=== PATIENT | female | born 2000 | race Caucasian/White ===

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

== ENCOUNTER 2020-06-18 23:36 | Emergency (ER) | payer SELFPAY ==
[~2020-06-18] VITALS: Ht 160 cm; Wt 52.1 kg
[~2020-06-18 23:36] MED LIST changes: -FLUO10CA19; +FLUO10CA31; -MAGN400T6 PO; +MAGN400T8 PO; +SMTR50T PO
[2020-06-19] MEDS ORDERED: LACTATED RINGERS 1,000 ML IV ONE (00:30)
[2020-06-19 00:33] LABS: BILIRUBIN,URINE NEGATIVE (NEGATIVE); CLARITY,URINE CLEAR; COLOR,URINE YELLOW; GLUCOSE, URINE (UA) NEGATIVE (NEGATIVE); KETONES,URINE NEGATIVE (NEGATIVE); LEUKOCYTE ESTERASE ,URINE NEGATIVE (NEGATIVE); NITRITE,URINE NEGATIVE (NEGATIVE); PROTEIN,URINE NEGATIVE (NEGATIVE)
[2020-06-19 00:36] LABS: BASOPHILS # (AUTO) 0.1 10^3/uL (0.0-0.1); BASOPHILS % (AUTO) 1 % (0-10); EOSINOPHILS # (AUTO) 0.3 10^3/uL (0.0-0.3); EOSINOPHILS % (AUTO) 2 % (0-10); HEMATOCRIT 45 % (35-52); LYMPHOCYTES # (AUTO) 1.9 10^3/uL (1.0-4.0); LYMPHOCYTES % (AUTO) 16 % (12-44); MEAN CORPUSCULAR HEMOGLOBIN 31 pg (25-34); MEAN CORPUSCULAR HGB CONC 34 g/dL (32-36); MEAN CORPUSCULAR VOLUME 92 fL (80-99); MEAN PLATELET VOLUME 10.9 fL (9.0-12.2); MONOCYTES % (AUTO) 9 % (0-12); NEUTROPHILS # (AUTO) 8.6 10^3/uL (1.8-7.8); NEUTROPHILS % (AUTO) 72 % (42-75); PLATELET COUNT 244 10^3/uL (130-400); WHITE BLOOD COUNT 11.9 10^3/uL (4.3-11.0)
[2020-06-19 00:39] LABS: BACTERIA,URINE NEGATIVE /HPF
[2020-06-19 00:43] LABS: AMPHETAMINE SCREEN, URINE NEGATIVE (NEGATIVE); BARBITURATE SCREEN URINE NEGATIVE (NEGATIVE); BENZODIAZEPINES SCREEN URINE NEGATIVE (NEGATIVE); CANNABINOID SCREEN, URINE NEGATIVE (NEGATIVE); COCAINE SCREEN URINE NEGATIVE (NEGATIVE); METHADONE STAT NEGATIVE (NEGATIVE); METHAMPHETAMINE SCREEN URINE S NEGATIVE (NEGATIVE); OPIATE SCREEN URINE NEGATIVE (NEGATIVE); OXYCODONE STAT NEGATIVE (NEGATIVE); PROPOXYPHENE STAT NEGATIVE (NEGATIVE); TRICYCLIC ANTIDEPRESSANTS SCRE NEGATIVE (NEGATIVE)
[2020-06-19 00:47] LABS: CHLORIDE 106 MMOL/L (98-107); POTASSIUM 3.4 MMOL/L (3.6-5.0); SODIUM 145 MMOL/L (135-145)
[2020-06-19 00:48] LABS: ALBUMIN 4.7 GM/DL (3.2-4.5)
[2020-06-19 00:50] LABS: GLUCOSE 90 MG/DL (70-105); TOTAL PROTEIN 7.9 GM/DL (6.4-8.2)
[2020-06-19 00:51] LABS: CARBON DIOXIDE 27 MMOL/L (21-32)
[2020-06-19 00:52] LABS: BILIRUBIN,TOTAL 0.3 MG/DL (0.1-1.0)
[2020-06-19 00:54] LABS: ALKALINE PHOSPHATASE 72 U/L (40-136); CREATININE SERUM 0.72 MG/DL (0.60-1.30); GFR ESTIMATED > 60
[2020-06-19 00:55] LABS: BUN/CREATININE RATIO 8
[2020-06-19 00:56] LABS: ACETAMINOPHEN < 10 UG/ML (10-30); SALICYLATE < 5.0 MG/DL (5.0-20.0)
[2020-06-19 00:57] LABS: ALANINE AMINOTRANSFERASE 22 U/L (0-55)
--- NOTE | 2020-06-19 01:04 | ED General ---
General Chief Complaint: Substance Abuse Stated Complaint: UNK-POSSIBLE DRUG INTOXICATION Allergies and Home Medications Allergies Coded Allergies: codeine (Verified Allergy, Unknown, 06/21/15) Home Medications Albuterol Sulfate 1 Puff Puff, 2 PUFF IH Q4H PRN for WHEEZING 1 PUFF = 90 MCG Prescribed by: BHARATHI PARNELL on 07/16/172039 Azithromycin 250 Mg Tablet, 250 MG PO UD TAKE 2 TABLETS ON DAY ONE THEN TAKE 1 TABLET DAILY FOR FOUR MORE DAYS Prescribed by: ROMAN SUTTON on 08/16/172339 Cyclobenzaprine HCl 10 Mg Tablet, 10 MG PO Q8H PRN for SPASMS Prescribed by: BHARATHI PARNELL on 07/16/172039 Hydrocodone Bit/Acetaminophen 1 Each Tablet, 1 EACH PO Q4H PRN for PAIN, (Reported) Prednisone 20 Mg Tab, 40 MG PO DAILY Prescribed by: ROMAN SUTTON on 08/16/17 233 Sumatriptan Succinate 50 Mg Tab, 50 MG PO UD one tablet at onset of headache. May take another 2 hours later if needed. Prescribed by: ROMAN SUTTON on 10/03/18 1451 Past Hagrshd-Ikhrui-Ngepqw Hx Patient Social History Type Used: Cigarettes Former Smoker, Quit: Jan 20, 2015 2nd Hand Smoke Exposure: No Recent Hopitalizations: No Immunizations Up To Date Tetanus Booster (TDap): Less than 5yrs PED Vaccines UTD: Yes Seasonal Allergies Seasonal Allergies: No Past Medical History Surgeries: Yes (DENTAL) Respiratory: Yes Asthma Currently Using CPAP: No Currently Using BIPAP: No Cardiac: No Neurological: Yes Headaches /Migraines Reproductive Disorders: No Female Reproductive Disorders: Denies Sexually Transmitted Disease: No HIV/AIDS: No Genitourinary: No Gastrointestinal: No Musculoskeletal: No Endocrine: No HEENT: No Cancer: No Did You Recieve Any Treatments: No Psychosocial: No Integumentary: No Blood Disorders: No Adverse Reaction/Blood Tranf: No Family Medical History Asthma (Patient) FH: throat cancer (Grandfather) Heart murmur (Sister) No Pertinent Family Hx Physical Exam Vital Signs Capillary Refill : Height, Weight, BMI Height: 5'3.00" Weight: 108lbs. 0oz. 48.107678cb; 14.06 BMI Method:Actual Progress/Results/Core Measures Suspected Sepsis SIRS Temperature: Pulse: Respiratory Rate: Laboratory Tests 5/15/21 00:29: White Blood Count 11.9H Blood Pressure / Mean: Laboratory Tests 06/19/20 00:29: Creatinine 0.72, Platelet Count 244, Total Bilirubin 0.3 Results/Orders Lab Results Laboratory Tests Test 06/19/20 00:23 06/19/20 00:29 Range/Units Urine Color YELLOW Urine Clarity CLEAR Urine pH 6.0 5-9 Urine Specific [place] <=1.005 1.016-1.022 Urine Protein NEGATIVE NEGATIVE Urine Glucose (UA) NEGATIVE NEGATIVE Urine Ketones NEGATIVE NEGATIVE Urine Nitrite NEGATIVE NEGATIVE Urine Bilirubin NEGATIVE NEGATIVE Urine Urobilinogen 0.2 < = 1.0 MG/DL Urine Leukocyte Esterase NEGATIVE NEGATIVE Urine RBC (Auto) NEGATIVE NEGATIVE Urine RBC NONE /HPF Urine WBC NONE /HPF Urine Squamous Epithelial Cells 2-5 /HPF Urine Crystals NONE /LPF Urine Bacteria NEGATIVE /HPF Urine Casts NONE /LPF Urine Mucus NEGATIVE /LPF Urine Culture Indicated NO Urine Opiates Screen NEGATIVE NEGATIVE Urine Oxycodone Screen NEGATIVE NEGATIVE Urine Methadone Screen NEGATIVE NEGATIVE Urine Propoxyphene Screen NEGATIVE NEGATIVE Urine Barbiturates Screen NEGATIVE NEGATIVE Ur Tricyclic Antidepressants Screen NEGATIVE NEGATIVE Urine Phencyclidine Screen NEGATIVE NEGATIVE Urine Amphetamines Screen NEGATIVE NEGATIVE Urine Methamphetamines Screen NEGATIVE NEGATIVE Urine Benzodiazepines Screen NEGATIVE NEGATIVE Urine Cocaine Screen NEGATIVE NEGATIVE Urine Cannabinoids Screen NEGATIVE NEGATIVE White Blood Count 11.9 H 4.3-11.0 10^3/uL Red Blood Count 4.87 3.80-5.11 10^6/uL Hemoglobin 15.0 11.5-16.0 g/dL Hematocrit 45 35-52 % Mean Corpuscular Volume 92 80-99 fL Mean Corpuscular Hemoglobin 31 25-34 pg Mean Corpuscular Hemoglobin Concent 34 32-36 g/dL Red Cell Distribution Width 12.8 10.0-14.5 % Platelet Count 244 130-400 10^3/uL Mean Platelet Volume 10.9 9.0-12.2 fL Immature Granulocyte % (Auto) 0 % Neutrophils (%) (Auto) 72 42-75 % Lymphocytes (%) (Auto) 16 12-44 % Monocytes (%) (Auto) 9 0-12 % Eosinophils (%) (Auto) 2 0-10 % Basophils (%) (Auto) 1 0-10 % Neutrophils # (Auto) 8.6 H 1.8-7.8 10^3/uL Lymphocytes # (Auto) 1.9 1.0-4.0 10^3/uL Monocytes # (Auto) 1.0 0.0-1.0 10^3/uL Eosinophils # (Auto) 0.3 0.0-0.3 10^3/uL Basophils # (Auto) 0.1 0.0-0.1 10^3/uL Immature Granulocyte # (Auto) 0.0 0.0-0.1 10^3/uL Sodium Level 145 135-145 MMOL/L Potassium Level 3.4 L 3.6-5.0 MMOL/L Chloride Level 106 98-107 MMOL/L Carbon Dioxide Level 27 21-32 MMOL/L Anion Gap 12 5-14 MMOL/L Blood Urea Nitrogen 6 L 7-18 MG/DL Creatinine 0.72 0.60-1.30 MG/DL Estimat Glomerular Filtration Rate > 60 BUN/Creatinine Ratio 8 Glucose Level 90 70-105 MG/DL Calcium Level 9.0 8.5-10.1 MG/DL Corrected Calcium 8.5-10.1 MG/DL Total Bilirubin 0.3 0.1-1.0 MG/DL Aspartate Amino Transf (AST/SGOT) 24 5-34 U/L Alanine Aminotransferase (ALT/SGPT) 22 0-55 U/L Alkaline Phosphatase 72 40-136 U/L Total Protein 7.9 6.4-8.2 GM/DL Albumin 4.7 H 3.2-4.5 GM/DL Serum Test, Qualitative NEGATIVE NEGATIVE Salicylates Level < 5.0 L 5.0-20.0 MG/DL Acetaminophen Level < 10 L 10-30 UG/ML Serum Alcohol 208 H <10 MG/DL My Orders Orders - RACHELLE LAMBERT DO Ed Iv/Invasive Line Start (06/19/20 00:18) Monitor-Rhythm Ecg Trace Only (06/19/20 00:18) Acetaminophen (06/19/20 00:18) Alcohol (06/19/20:18) Cbc With Automated Diff (06/19/20:18) Comprehensive Metabolic Panel (06/19/20:18) Drug Screen Stat (Urine) (06/19/20 00:18) Hcg,Qualitative Serum (06/19/20:18) Salicylate (06/19/20 00:18) Ua Culture If Indicated (5/15/21 00:18) Ed Iv/Invasive Line Start (06/19/20 00:18) Lactated Ringers (Lr 1000 Ml Iv Solution (06/19/20 00:30) Medications Given in ED Current Medications Medications Dose Ordered Sig/Avery Route Start Time Stop Time Status Last Admin Dose Admin Lactated Ringer's 1,000 ml @ 0 mls/hr Q0M ONCE IV 06/19/20 00:30 06/19/20 00:31 DC 06/19/20 00:42 999 MLS/HR Vital Signs/I&O Capillary Refill : Progress Note : Progress Note GIVEN IV FLUIDS PT QUICKLY WITH IMPROVED MENTATION, SPEECH CLEARER, AND GAIT STEADY AT DISMISSAL Departure Impression Primary Impression: Acute alcoholic intoxication Disposition: 01 HOME, SELF-CARE Condition: Stable Departure-Patient Inst. Decision time for Depature: 01:00 Referrals: [facility] (PCP/Family) Primary Care Physician Patient Instructions: Alcohol Abuse and Alcoholism (DC) Add. Discharge Instructions: NO ALCOHOL!!! HOME, REST LOTS OF CLEAR LIQUIDS--WATER, BROTH, JELLO, GATORADE FOLLOW UP WITH YOUR DR NEEDED All discharge instructions reviewed with patient and/or family. Voiced understanding. RACHELLE LAMBERT DO June 19, 2020 01:03
[2020-06-19 01:34] VITALS: BP 132/78
== END 2020-06-19 01:38 | disposition home or self-care (01) ==
LOC: EDUNIT# 23:36 → ER 23:38
DX: F10.129 Alcohol abuse with intoxication, unspecified (principal); J45.909 Unspecified asthma, uncomplicated; G43.909 Migraine, unspecified, not intractable, without status migrainosus; Z88.5 Allergy status to narcotic agent; Z87.891 Personal history of nicotine dependence; Z79.52 Long term (current) use of systemic steroids; Z79.899 Other long term (current) drug therapy
CPT/HCPCS: 80053; 80306; 81000; 84703 ×2; 85025; 93041; 99284; G0480 ×3; 36415; 80320; 80329

== ENCOUNTER 2021-04-06 19:43 | Emergency (ER) | payer MEDICAID ==
[~2021-04-06] VITALS: Ht 160 cm; Wt 54.0 kg
[~2021-04-06 19:43] MED LIST changes: +CYCL10TA25 PO; -CYCL10TA9 PO; -FLUO10CA31; +FLUO10CA33; -MAGN400T8 PO; +MGX400T PO
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
[2021-04-06 20:01] LABS: BASOPHILS # (AUTO) 0.1 10^3/uL (0.0-0.1); BASOPHILS % (AUTO) 1 % (0-10); EOSINOPHILS # (AUTO) 0.4 10^3/uL (0.0-0.3); EOSINOPHILS % (AUTO) 4 % (0-10); HEMATOCRIT 42 % (35-52); HEMOGLOBIN 14.2 g/dL (11.5-16.0); LYMPHOCYTES # (AUTO) 2.5 10^3/uL (1.0-4.0); LYMPHOCYTES % (AUTO) 24 % (12-44); MEAN CORPUSCULAR HEMOGLOBIN 30 pg (25-34); MEAN CORPUSCULAR HGB CONC 34 g/dL (32-36); MEAN CORPUSCULAR VOLUME 88 fL (80-99); MONOCYTES % (AUTO) 10 % (0-12); NEUTROPHILS # (AUTO) 6.4 10^3/uL (1.8-7.8); NEUTROPHILS % (AUTO) 61 % (42-75); PLATELET COUNT 321 10^3/uL (130-400); WHITE BLOOD COUNT 10.4 10^3/uL (4.3-11.0)
[2021-04-06] MEDS ORDERED: fentaNYL INJ 100 MCG/2 ML AMP IVP STA (20:11)
[2021-04-06] MEDS ORDERED: IOHEXOL 350 MG/ML 100 ML (OMNIPAQUE 350) VIAL IV ONE (20:15)
[2021-04-06] MEDS ORDERED: HOLD METFORMIN - RECEIVED CONTRAST 20 ML VIAL IV SCH (20:15)
[2021-04-06] MEDS ORDERED: NS 100 ML (IVPB) BAG IV ONE (20:15)
[2021-04-06 20:17] LABS: ALBUMIN 4.3 GM/DL (3.2-4.5)
[2021-04-06 20:18] LABS: POTASSIUM 3.6 MMOL/L (3.6-5.0)
[2021-04-06 20:19] LABS: CALCIUM 9.1 MG/DL (8.5-10.1)
[2021-04-06 20:20] LABS: TOTAL PROTEIN 7.1 GM/DL (6.4-8.2)
[2021-04-06 20:22] LABS: BILIRUBIN,TOTAL 0.4 MG/DL (0.1-1.0)
[2021-04-06 20:24] LABS: CREATININE SERUM 1.04 MG/DL (0.60-1.30)
--- NOTE | 2021-04-06 21:01 | Diagnostic Imaging Report ---
PROCEDURE: CT head, face, and cervical spine without contrast. TECHNIQUE: Multiple contiguous axial images were obtained through the head, neck, and facial bones without the use of intravenous contrast. Sagittal and coronal reformations through the cervical spine and facial bones were also performed. Auto Exposure Controls were utilized during the CT exam to meet ALARA standards for radiation dose reduction. INDICATION: Head injury, facial pain. COMPARISON: None available. FINDINGS: Head: No hyperdense hemorrhage or space-occupying mass. No hydrocephalus or midline shift. No evidence of territorial infarct. Basilar cisterns are patent. No focal scalp swelling. No skull fracture. The paranasal sinuses and mastoid air cells are clear. Face: No fracture in the nasal bones, osseous nasal septum, zygomatic arches, maxillary sinus gonzalez or orbits. No globe injury. Temporal mandibular joints are normal alignment. No mandibular fracture is appreciated. Cervical spine: No acute fracture or traumatic malalignment. No high-grade spinal canal narrowing. Airway is patent. No cervical lymphadenopathy. Visualized thyroid is normal. IMPRESSION: 1. No acute intracranial process or skull fracture. 2. No acute fracture or traumatic malalignment of the cervical spine. 3. No fracture of the midface or mandible. Dictated by: Dictated on workstation # [id number]
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
[2021-04-06] MEDS ORDERED: KETOROLAC 30 MG/ML VIAL IVP ONE (21:30)
[2021-04-06] MEDS ORDERED: CYCL10TA25 PO (21:42)
[2021-04-06] MEDS ORDERED: NAPR500T8 PO (21:42)
[2021-04-06 21:55] VITALS: BP 110/80
== END 2021-04-06 21:55 ==
LOC: EDUNIT# 19:43 → ER 19:44
DX: M79.10 Myalgia, unspecified site (principal); Z91.040 Latex allergy status
CPT/HCPCS: 36415; 70450; 70486; 71260; 72125; 74177; 80053; 84703; 85025

== ENCOUNTER 2021-04-28 13:44 | Outpatient (RCR) | payer OTHER ==
[~2021-04-28 13:44] MED LIST changes: +NAPR500T8 PO
== END 2021-05-05 | disposition home or self-care (01) ==
PROVIDERS: ATTEND Nurse Practitioner Family
DX: M54.12 Radiculopathy, cervical region (principal); V89.2XXA Person injured in unspecified motor-vehicle accident, traffic, initial encounter

== ENCOUNTER 2021-06-02 15:25 | Outpatient (RCR) | payer OTHER | END 2021-06-04 | disposition home or self-care (01) | PROVIDERS: ATTEND Nurse Practitioner Family | DX: M54.12 Radiculopathy, cervical region (principal); V89.2XXA Person injured in unspecified motor-vehicle accident, traffic, initial encounter ==

== ENCOUNTER 2021-06-06 14:28 | Outpatient (RCR) | payer OTHER | END 2021-06-24 08:23 | disposition home or self-care (01) | PROVIDERS: ATTEND Nurse Practitioner Family | DX: M50.13 Cervical disc disorder with radiculopathy, cervicothoracic region (principal); M79.12 Myalgia of auxiliary muscles, head and neck; M25.561 Pain in right knee; M25.562 Pain in left knee; M54.50 Low back pain, unspecified; J45.909 Unspecified asthma, uncomplicated; V89.2XXD Person injured in unspecified motor-vehicle accident, traffic, subsequent encounter ==

== ENCOUNTER 2022-06-11 04:59 | Emergency (ER) | payer MEDICAID ==
[~2022-06-11] VITALS: Ht 160 cm; Wt 73.0 kg
[~2022-06-11 04:59] MED LIST changes: +ALBU8.5H6 IH; -RT-ALBUINH IH
[2022-06-11 05:16] VITALS: BP 129/81
[2022-06-11] MEDS ORDERED: RX-ALBUTEROL INHALER 8.5 GM HFA (PROAIR) IH STA (05:51)
[2022-06-11] MEDS ORDERED: RT-ALBUINH INH (05:54)
--- NOTE | 2022-06-11 05:54 | ED Respiratory ---
General Chief Complaint: Respiratory Problems Stated Complaint: ASTHMA ATTACH,COUGH,SOB Nursing Triage Note: Pt presents with c/o asthma attack that has been going on since midnight. She states she ran out of her inhaler yesterday. Pt also states she's approx 12 weeks . Source: patient Exam Limitations: no limitations History of Present Illness Date Seen by Provider: June 11, 2022 Time Seen by Provider: 05:45 Initial Comments Here with report of several episodes of wheezing since midnight. States that she is 11+ weeks . She has had asthma since she was 11 years old. She will have occasional exacerbations. She ran out of her inhaler yesterday. Denies fever or chills. Denies sore throat runny nose but does have some intermittent cough with the asthma attacks. She does still smoke. She follows with Dr. lOiva. Timing/Duration: yesterday Severity: mild, moderate Prior Episodes/Possible Cause: occasional episodes Modifying Factors: Improves With Albuterol Inhaler Associated Symptoms: cough; No fever/chills; shortness of breath, wheezing Allergies and Home Medications Allergies Coded Allergies: codeine (Verified Allergy, Unknown, 06/21/15) latex (Verified Allergy, Unknown, 04/06/21) Patient Home Medication List Home Medication List Reviewed: Yes Albuterol Sulfate (Ventolin Hfa) 1 Puff Puff, 2 PUFF IH Q4H PRN for WHEEZING Prescribed by: BHARATHI PARNELL on 07/16/172039 Albuterol Sulfate (Ventolin Hfa) 1 Puff Puff, 2 PUFF INH Q6H PRN for COUGH Prescribed by: SONIDO BUNN on 06/11/22 0554 Azithromycin (Azithromycin) 250 Mg Tablet, 250 MG PO UD Prescribed by: ROMAN SUTTON on 08/16/17 2340 Cyclobenzaprine HCl (Cyclobenzaprine HCl) 10 Mg Tablet, 10 MG PO Q8H PRN for SPASMS Prescribed by: BHARATHI PARNELL on 07/16/172039 Cyclobenzaprine HCl (Cyclobenzaprine HCl) 10 Mg Tablet, 10 MG PO TID PRN for MUSCLE SPASMS Prescribed by: RUMA ROBINS on 04/06/212141 Fluoxetine HCl (Fluoxetine HCl) 10 Mg Capsule, (Reported) Entered as Reported by: ZEFERINO BARTHOLOMEW on 07/12/162140 Hydrocodone Bit/Acetaminophen (Lortab 5 Mg Tablet) 1 Each Tablet, 1 EACH PO Q4H PRN for PAIN, (Reported) Entered as Reported by: FRANK CASTELLANOS on 05/02/16 1256 Naproxen (Naproxen) 500 Mg Tablet.dr, 500 MG PO BID Prescribed by: RUMA ROBINS on 04/06/212141 Prednisone (Prednisone) 20 Mg Tab, 40 MG PO DAILY Prescribed by: ROMAN SUTTON on 08/16/17 2331 Sumatriptan Succinate (Imitrex) 50 Mg Tab, 50 MG PO UD Prescribed by: ROMAN SUTTON on 10/03/18 1451 [Proventil] , (Reported) Entered as Reported by: ZEFERINO BARTHOLOMEW on 07/12/162140 Review of Systems Review of Systems Constitutional: see HPI; No chills, No fever EENTM: No nose congestion, No throat pain Respiratory: cough, short of breath, wheezing Cardiovascular: no symptoms reported Gastrointestinal: nausea; No vomiting Genitourinary: no symptoms reported Past Zeudoyl-Vrmxrb-Elmxag Hx Patient Social History Tobacco Use?: Yes Tobacco type used: Cigarettes Substance use?: No Alcohol Use?: No Immunizations Up To Date Tetanus Booster (TDap): Less than 5yrs PED Vaccines UTD: Yes Seasonal Allergies Seasonal Allergies: No Past Medical History Surgery/Hospitalization HX: ASTHMA Surgeries: Yes (DENTAL) Respiratory: Yes Asthma Currently Using CPAP: No Currently Using BIPAP: No Cardiac: No Neurological: Yes Headaches /Migraines Last Menstrual Period: Mar 21, 2022 Reproductive Disorders: No Female Reproductive Disorders: Denies Sexually Transmitted Disease: No HIV/AIDS: No Genitourinary: No Gastrointestinal: No Musculoskeletal: No Endocrine: No HEENT: No Cancer: No Did You Recieve Any Treatments: No Psychosocial: No Integumentary: Yes (MULTIPLE TATTOOS) Blood Disorders: No Adverse Reaction/Blood Tranf: No Family Medical History Reviewed Nursing Family Hx Asthma (Patient) FH: throat cancer (Grandfather) Heart murmur (Sister) No Pertinent Family Hx Physical Exam Vital Signs - First Documented 06/11/22 05:16 Temp 36.2 Pulse 101 Resp 16 B/P (MAP) 129/81 (97) Capillary Refill : Height: 5'3.00" Weight: 108lbs. 0oz. 48.463807ts; 28.00 BMI Method:Actual General Appearance: WD/WN, no apparent distress HEENT: PERRL/EOMI, pharynx normal Neck: full range of motion, supple Respiratory: lungs clear, normal breath sounds Cardiovascular: regular rate, rhythm, no murmur Neurologic/Psychiatric: alert, oriented x 3 Skin: normal color, warm/dry Progress/Results/Core Measures Suspected Sepsis SIRS Temperature: Pulse: 101 Respiratory Rate: 16 Blood Pressure 129 /81 Mean: 97 Results/Orders My Orders Orders - SONIDO BUNN MD Rx-Albuterol Inhaler (Rx-Ventolin Hfa In (06/11/22 05:51) Vital Signs/I&O 06/11/22 05:16 Temp 36.2 Pulse 101 Resp 16 B/P (MAP) 129/81 (97) Capillary Refill : Blood Pressure Mean: 97 Progress Note : Progress Note Seen and evaluated. Patient is not currently wheezing and O2 sats are 98 to 100%. She is tired and would like to go home. She is out of her inhaler. We did discuss options for inhaler replacement including just prescription or go pack from here. She would like to have a go pack from here. I will go ahead and prescribe inhaler for her as well. Discharged home with return precautions. Patient verbalized understanding instructions and agreement with plan. Departure Impression Primary Impression: Asthma attack Qualified Codes: J45.21 - Mild intermittent asthma with (acute) exacerbation Disposition: 01 HOME, SELF-CARE Condition: Improved Departure-Patient Inst. Decision time for Depature: 05:53 Referrals: LINDSAY OLIVA MD (PCP/Family) Primary Care Physician Patient Instructions: How to Use a Metered Dose Inhaler ED, Asthma, Adult ED Add. Discharge Instructions: All discharge instructions reviewed with patient and/or family. Voiced understanding. Use inhaler as directed. Follow-up with your doctor for recheck and further evaluation this week. Return for breathing problems, weakness, fever, vomiting or other concerns as needed. Scripts Albuterol Sulfate (VENTOLIN HFA) 1 Puff Puff 2 PUFF INH Q6H PRN for COUGH, #1 EA 1 Refill 1 PUFF = 90 MCG Prov: SONIDO BUNN MD 06/11/22 SONIDO BUNN MD June 11, 2022 05:54
== END 2022-06-11 06:08 | disposition home or self-care (01) ==
LOC: EDUNIT# 04:59 → ER 05:02
DX: O99.511 Diseases of the respiratory system complicating pregnancy, first trimester (principal); J45.901 Unspecified asthma with (acute) exacerbation; O99.331 Smoking (tobacco) complicating pregnancy, first trimester; F17.210 Nicotine dependence, cigarettes, uncomplicated; Z3A.11 11 weeks gestation of pregnancy; Z79.52 Long term (current) use of systemic steroids; Z28.310 Unvaccinated for COVID-19
CPT/HCPCS: 99281

== ENCOUNTER 2022-12-02 23:50 | Outpatient (CLI) | payer MEDICAID ==
[~2022-12-02] VITALS: Ht 160 cm; Wt 73.6 kg
[2022-12-03 00:20] VITALS: BP 122/78
[2022-12-03 00:30] LABS: COLOR,URINE YELLOW
[2022-12-03 00:31] LABS: BILIRUBIN,URINE NEGATIVE (NEGATIVE); CLARITY,URINE CLEAR; GLUCOSE, URINE (UA) NEGATIVE (NEGATIVE); KETONES,URINE TRACE (NEGATIVE); LEUKOCYTE ESTERASE ,URINE TRACE (NEGATIVE); NITRITE,URINE NEGATIVE (NEGATIVE); PH,URINE 7.5 (5-9); PROTEIN,URINE 1+ (NEGATIVE)
[2022-12-03 00:32] LABS: BACTERIA,URINE TRACE /HPF; WBC,URINE 0-2 /HPF
[2022-12-03] MEDS ORDERED: LACTATED RINGERS 1,000 ML 1,000 ML IV ONE (00:45)
[2022-12-03] MEDS ORDERED: PREN-142 PO (00:54)
[2022-12-03] MEDS ORDERED: CALC500T7 PO (00:54)
--- NOTE | 2022-12-04 08:09 | Physician Query-Final Dx ---
Clinic Account Progress/Dx Physician Query: Please give diagnosis Please include # weeks gestation Date of Service Dec 02, 2022 at 23:50 CONTRERAS,FebDec 04, 2022 08:09
== END 2022-12-03 01:35 | disposition home or self-care (01) ==
LOC: WSo 23:50 → LDRP 23:51 → WSo 12-03 01:35
PROVIDERS: ATTEND Family Medicine
DX: O26.899 Other specified pregnancy related conditions, unspecified trimester (principal); R11.2 Nausea with vomiting, unspecified; Z3A.00 Weeks of gestation of pregnancy not specified
CPT/HCPCS: 81000; 96360; 99213

== ENCOUNTER 2022-12-20 15:28 | Outpatient (CLI) | payer MEDICAID ==
[~2022-12-20] VITALS: Ht 160 cm; Wt 72.8 kg
[~2022-12-20 15:28] MED LIST changes: +CALC500T7 PO; +PREN-142 PO
[2022-12-20 15:53] VITALS: BP 129/71
[2022-12-20 16:10] LABS: CLARITY,URINE CLEAR; COLOR,URINE YELLOW; PROTEIN,URINE NEGATIVE (NEGATIVE)
[2022-12-20 16:11] LABS: BACTERIA,URINE FEW /HPF; BILIRUBIN,URINE NEGATIVE (NEGATIVE); GLUCOSE, URINE (UA) NEGATIVE (NEGATIVE); KETONES,URINE NEGATIVE (NEGATIVE); LEUKOCYTE ESTERASE ,URINE NEGATIVE (NEGATIVE); NITRITE,URINE NEGATIVE (NEGATIVE)
--- NOTE | 2022-12-21 08:00 | Physician Query-Final Dx ---
CONTRERAS,12/21/22 0800: Clinic Account Progress/Dx Physician Query: Please give diagnosis Please include # weeks gestation Date of Service Dec 20, 2022 at 15:28 ROXANNA RUBIO DO 12/22/22 0959: Clinic Account Progress/Dx DIAGNOSIS: Diagnosis 38w3d vaginal discharge contractions, not in active labor CONTRERAS,FebDec 21, 2022 08:00 ROXANNA RUBIO DO Dec 22, 2022 09:59
== END 2022-12-20 16:43 | disposition home or self-care (01) ==
LOC: WSo 15:28 → LDRP 15:29 → WSo 16:43
PROVIDERS: ATTEND Family Medicine
DX: O47.1 False labor at or after 37 completed weeks of gestation (principal); Z3A.38 38 weeks gestation of pregnancy
CPT/HCPCS: 81000; 87088; G0463; 99214

== ENCOUNTER 2022-12-21 06:17 | Inpatient (IN) | payer MEDICAID ==
[~2022-12-21] VITALS: Ht 160 cm; Wt 72.6 kg
[2022-12-21] VITALS (50 sets, daily range): BP systolic 97–142; BP diastolic 61–92
--- OUTSIDE RECORDS SUMMARY | 2022-12-21 06:20 | XMS REPORT ---
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 Name Role Phone ALEXIS PRESTON Unavailable PROBLEMS Type Condition ICD9-CM Code ZCN97-LR Code Onset Dates Condition Status W/U Status Risk SNOMED Code Notes Problem Insomnia, unspecified type G47.00 confirmed 007808065 Problem Moderate persistent asthma without complication J45.40 confirmed [id number] Problem care in third trimester Z34.93 confirmed [id number] Problem Migraine with aura and without status migrainosus, not intractable G43.109 confirmed [id number] ALLERGIES Allergen (clinical drug ingredient) Drug/Non Drug Allergy documented on EMR Reaction Allergy Type Onset Date Status Codeine Phosphate([facility] Code:[address]-40 ) vomiting Drug Allergy Active Tape/Adhesives rash/reddened skin Non Drug Allergy Active Latex/Latex Containing Products rash/reddened skin Non Drug Allergy Active ENCOUNTERS from 1999 to 2022-09-16 Encounter Location Date Provider Diagnosis [facility] [address] [facility] [id number] [address] Sep, CRYSTAL KARY Acute cystitis without hematuria N30.00 and Dysuria R30.0 IMMUNIZATIONS Vaccine Route Administration Date Status PRIVATE TDAP (BOOSTRIX) IM Intramuscular June 30, 2015 Administered FLUMIST QUAD (2-49 YRS)-MEDIMMUNE-2015 NS Nasal Dec 03, 2014 Administered SOCIAL HISTORY Sex Assigned At : Social History Observation Description Sex Assigned At Unknown Alcohol Screen (Audit-C) Question Answer Notes Did you have a drink containing alcohol in the p ast year? No Points 0 Interpretation Negative Sexual History Question Answer Notes Had sex in the past 12 months (vaginal, oral, or anal)? Yes Last menstrual period 05/05/2022 Have you ever had a Sexually transmitted disease ? No with Men only Use protection? Yes How often? Some of the time PHQ2 Question Answer Notes In the last 2 weeks, how oft en have you had little interest or pleasure in doing things? Several days In the last 2 weeks, how oft en have you been feeling down, depressed, or hopeless? Several days Total PHQ2 Score 2 REASON FOR REFERRAL No Information VITAL SIGNS Height 62.5 in Sep, Weight 128.2 lbs Sep, Weight-kg 58.15 kg Sep, Temperature 98.7 degrees Fahrenheit Sep, Heart Rate 92 bpm Sep, Respiratory Rate 16 bpm Sep, Oximetry 99 % Sep, BMI 23.07 kg/m2 Sep, Blood pressure systolic 100 mmHg Sep, Blood pressure diastolic 70 mmHg Sep, MEDICATIONS Medication SIG (Take, Route, Frequency, Duration) Notes Start Date End Date Status ProAir HFA 108 (90 Base) MCG/ACT 2 puffs as needed Inhalation every 4 hrs for 30 days PRN Active (w/Iron & FA) 27-0.8 mg 1 tablet Orally Once a day for 30 days Apr, Active Tylenol 325 MG 1 tablet as needed Orally every 4 hrs migraine Active REASON FOR VISIT Burning and frequent urination X4 days, Denies of any fevers----BDavidsonMA MEDICAL (GENERAL) HISTORY Type Description Date Medical History asthma Medical History migraine Surgical History No know Surgical history Hospitalization History Pneumonia 2010 Hospitalization History Childbirth- Twins 6 MENTAL STATUS No Information ASSESSMENTS Encounter Date Diagnosis Assessment Notes Treatment Notes Treatment Clinical Notes Sep, Dysuria (ICD-10 - R30.0) Sep, Acute cystitis without hematuria (ICD-10 - N30.00) Urinary Tract Infection (UTI) in Women: Care Instructions material was published Sep, Other Medications as prescribed, rest as able, push fluids, call/return if symptoms worsen or do not improve. Pediatric UTI's: Avoid giving little girls bubble-baths or allowing her to sit in soapy bath water for very long. It's ok for her to take a bath in plain water, but she should play in the tub first, and wait until the end of the bath before using soap or shampoo, then get out of the tub as soon as possible. Encourage wiping "[id number]". Encourage to sit on the toilet with her legs spread wide open, to avoid small amounts of urine becoming trapped between the labia and causing irritation. Push fluids to maintain hydration and flush urinary track. Adult UTI: 1. Avoid bubble baths. Voiding after sexual intercourse for adult females will assist to flush potential bacteria from the urinary tract. Proper bathroom hygein wiping front to bacl. Maintain proper hydration with lots of water daily avoiding sodas as able. Pushing fluids helps to maintain hydration and flush urinary system. PLAN OF TREATMENT Treatment Notes Assessment Notes Clinical Notes Acute cystitis without hematuria Urinary Tract Infection (UTI) in Women: Care Instructions material was published Next Appt Details if not improving or regular follow up with pcp Reason: Provider Name:LINDSAY OLIVA, 2 023-08-15 01:20:00 PM, [address] [facility], [place], [address], Insurance Providers Payer Name Payer Address Payer Phone Insured Name Patient Relationship to Insured Coverage Start Date Coverage End Date Subscriber Number Group Number [id number] Vendor BD and [employer]. [address] [facility] [address] [place], [place] jesus Stacy Self - patient is the insured 2 [employer] [address] Attn A/P [facility] [address] [place] jesus D Self - patient is the insured 3 [employer] [address] [facility] [id number] [phone] [place] jesus D Self - patient is the insured [id number] MEDICATIONS ADMINISTERED Medication Instructions Date of Administration Dosag e PHENERGAN 50MG/ML Aug, 50 mg TORADOL 60 MG/2ML (KETOROLAC) Aug, 8 30 mg DEPO PROVERA (150 MG/ML) Nov, 150 mg MEDRXYPROGESTERONE ACETATE Feb, 1 50 mg
[2022-12-21] MEDS ORDERED: MINERAL OIL 30 ML UDC TOP PRN (06:30)
[2022-12-21] MEDS ORDERED: LACTATED RINGERS 1,000 ML 500 ML IV PRN (06:30)
[2022-12-21] MEDS ORDERED: D5 LR 1,000 ML IV SOLN 1,000 ML IV SCH (06:30)
[2022-12-21 07:06] LABS: BASOPHILS % (AUTO) 0 % (0-10); EOSINOPHILS # (AUTO) 0.4 10^3/uL (0.0-0.3); EOSINOPHILS % (AUTO) 4 % (0-10); HEMATOCRIT 35 % (35-52); HEMOGLOBIN 11.4 g/dL (11.5-16.0); LYMPHOCYTES # (AUTO) 1.9 10^3/uL (1.0-4.0); LYMPHOCYTES % (AUTO) 18 % (12-44); MEAN CORPUSCULAR HEMOGLOBIN 27 pg (25-34); MEAN CORPUSCULAR HGB CONC 33 g/dL (32-36); MEAN CORPUSCULAR VOLUME 82 fL (80-99); MEAN PLATELET VOLUME 10.9 fL (9.0-12.2); MONOCYTES # (AUTO) 0.8 10^3/uL (0.0-1.0); MONOCYTES % (AUTO) 8 % (0-12); NEUTROPHILS # (AUTO) 7.4 10^3/uL (1.8-7.8); NEUTROPHILS % (AUTO) 70 % (42-75); PLATELET COUNT 239 10^3/uL (130-400); WHITE BLOOD COUNT 10.6 10^3/uL (4.3-11.0)
[2022-12-21 07:13] LABS: CLARITY,URINE CLEAR; COLOR,URINE YELLOW
[2022-12-21 07:14] LABS: BACTERIA,URINE FEW /HPF; BILIRUBIN,URINE NEGATIVE (NEGATIVE); GLUCOSE, URINE (UA) NEGATIVE (NEGATIVE); KETONES,URINE 4+ (NEGATIVE); LEUKOCYTE ESTERASE ,URINE NEGATIVE (NEGATIVE); NITRITE,URINE NEGATIVE (NEGATIVE); PROTEIN,URINE NEGATIVE (NEGATIVE); RBC,URINE RARE /HPF
[2022-12-21] MEDS ORDERED: fentaNYL 2 mcg/ml BUPIVA 0.125 100 ML ONE (09:11)
[2022-12-21] MEDS ORDERED: LACTATED RINGERS 1,000 ML 1,000 ML IV ONE ×2 (09:11→13:30)
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
[2022-12-21] MEDS ORDERED: fentaNYL INJECTION 100 MCG/2 ML VIAL ONE (10:02)
[2022-12-21] MEDS ORDERED: BUPIVACAINE 0.25% 10 ML VIAL ONE (10:02)
[2022-12-21] MEDS ORDERED: OXYTOCIN DRIP PRE-MIX 500 ML IV SCH ×2 (11:45→17:45)
[2022-12-21] MEDS ORDERED: diphenhydrAMINE INJ 50 MG/ML VIAL IV PRN (13:30)
[2022-12-21] MEDS ORDERED: ONDANSETRON INJECTION 4 MG/2 ML (SDV) IV PRN (13:30)
[2022-12-21] MEDS ORDERED: CATHETER FLUSH 10 ML SYR IV PRN (13:30)
[2022-12-21] MEDS ORDERED: fentaNYL 2 mcg/ml BUPIVA 0.125 100 ML EPI SCH (13:30)
[2022-12-21] MEDS ORDERED: NALOXONE 0.4 MG/ML 1 ML VIAL IV PRN (13:30)
--- NOTE | 2022-12-21 15:43 | Labor Progress Note ---
Labor Progress Note Labor Progress Note Date Seen by Provider: Dec 21, 2022 Time Seen by Provider: 15:42 Subjective: Pt denies complaints. States she is feeling some pressure but not pushy Objective: / Assessment/Plan: Kelly Rueda is a (22 /Para 2 / 1,Gestational Age (wks)39.3 here for elective IOL CEFM/TOCO Continue pitocin augmentation Anesthesia: Epidural in place Anticipate vaginal delivery. Vitals - Labs Vital Signs - I&O Vital Signs Date Time Temp Pulse Resp B/P (MAP) Pulse Ox O2 Delivery O2 Flow Rate FiO2 12/21/22 14:38 83 18 120/81 (94) 100 Room Air 12/21/22 14:23 81 18 122/84 (97) 100 Room Air 12/21/22 14:09 69 18 116/72 (87) 99 Room Air 12/21/22 13:53 78 18 119/80 (93) 100 Room Air 12/21/22 13:51 37.4 12/21/22 13:38 86 18 112/64 (80) 100 Room Air 12/21/22 13:23 75 18 110/71 (84) 100 Room Air 12/21/22 13:10 82 18 114/65 (81) 100 Room Air 12/21/22 12:54 84 18 110/63 (79) 100 Room Air 12/21/22 12:38 87 18 119/64 (82) 95 Room Air 12/21/22 12:24 81 18 97/62 (74) 100 Room Air 12/21/22 12:10 78 18 101/70 (80) 99 Room Air 12/21/22 11:56 36.7 12/21/22 11:50 86 18 125/73 (90) 98 Room Air 12/21/22 11:40 78 18 120/81 (94) 100 Room Air 12/21/22 11:35 77 18 120/69 (86) 100 Room Air 12/21/22 11:30 81 18 121/77 (92) 100 Room Air 12/21/22 11:26 78 18 127/88 (101) 100 Room Air 12/21/22 11:21 83 18 130/78 (95) 98 Room Air 12/21/22 11:16 81 18 118/72 (87) 99 Room Air 12/21/22 11:12 82 18 118/70 (86) 99 Room Air 12/21/22 11:07 100 18 124/77 (93) 99 Room Air 12/21/22 11:01 84 18 127/75 (92) 99 Room Air 12/21/22 10:54 86 18 124/81 (95) 98 Room Air 12/21/22 10:51 66 18 118/74 (89) 98 Room Air 12/21/22 10:45 81 18 113/75 (88) 96 Room Air 12/21/22 10:42 76 18 119/77 (91) Room Air 12/21/22 10:38 81 18 120/78 (92) 97 Room Air 12/21/22 10:35 87 18 127/89 (102) 99 Room Air 12/21/22 10:32 93 18 125/79 (94) Room Air 12/21/22 10:29 83 18 133/69 (90) 99 Room Air 12/21/22 10:26 83 18 125/73 (90) Room Air 12/21/22 10:23 92 18 132/76 (94) 99 Room Air 12/21/22 10:20 91 18 127/80 (96) 100 Room Air 12/21/22 10:16 87 18 122/77 (92) Room Air 12/21/22 08:55 36.7 88 18 100 Room Air 12/21/22 08:55 36.7 90 18 134/92 (106) Room Air Labs Laboratory Tests 12/21/22 06:19: Urine Color YELLOW, Urine Clarity CLEAR, Urine pH 7.0, Urine Specific [place] 1.015L, Urine Protein NEGATIVE, Urine Glucose (UA) NEGATIVE, Urine Ketones 4+H, Urine Nitrite NEGATIVE, Urine Bilirubin NEGATIVE, Urine Urobilinogen 1.0, Urine Leukocyte Esterase NEGATIVE, Urine RBC (Auto) 2+H, Urine RBC RARE, Urine WBC 2- 5, Urine Squamous Epithelial Cells 5-10, Urine Crystals NONE, Urine Bacteria FEWH, Urine Casts NONE, Urine Mucus NEGATIVE, Urine Culture Indicated YES 12/21/22 06:35: White Blood Count 10.6, Red Blood Count 4.26, Hemoglobin 11.4L, Hematocrit 35, Mean Corpuscular Volume 82, Mean Corpuscular Hemoglobin 27, Mean Corpuscular Hemoglobin Concent 33, Red Cell Distribution Width 15.1H, Platelet Count 239, Mean Platelet Volume 10.9, Immature Granulocyte % (Auto) 0, Neutrophils (%) (Auto) 70, Lymphocytes (%) (Auto) 18, Monocytes (%) (Auto) 8, Eosinophils (%) (Auto) 4, Basophils (%) (Auto) 0, Neutrophils # (Auto) 7.4, Lymphocytes # (Auto) 1.9, Monocytes # (Auto) 0.8, Eosinophils # (Auto) 0.4H, Basophils # (Auto) 0.0, Immature Granulocyte # (Auto) 0.0, Syphilis Total Antibody Negative LINDSAY OLIVA MD Dec 21, 2022 15:43
[2022-12-21] MEDS ORDERED: LIDOCAINE 2% w/EPI 1:200,000 20 ML VIAL ONE (16:38)
--- NOTE | 2022-12-21 17:43 | OB Labor & Delivery Record ---
Vag Delivery Note Vag Delivery Note Date of Delivery: 12/21/22 Preoperative Diagnosis: Kelly Rueda is a (22 /Para 2 / 1,Gestational Age (wks)39.2 wga here for elective IOL Postoperative Diagnosis: Same Attending Surgeon/Physician: Lindsay Lozoya MD Checkering Machine Operator: None Anesthesia: Epidural Delivery Type: Vacuum assisted vaginal delivery @ 1715 Findings: Viable female infant, apgars 9/9, weight 3600 grams Lacerations: 2nd degree perineal Intact placenta with 3 vessel cord. Nuchal cord x1 reduced at delivery of head, No body cord or shoulder dystocia. Estimated Blood Loss: 100 ml Complications: None Condition: Stable Description of Procedure: The patient is a 22 year old female who presented for elective IOl. She was admitted and informed consent was obtained. Her labor course was remarkable for pitocin augmentation and bradycardia. She progressed to complete dilatation and began to push. She was then set up for delivery. The 's head was delivered atraumatically in the OP position with mighty Vac. Inital vacuum at 1711 with one pull and 1 pop off on the 3rd push. Replaced @ 1715 and head was delivered and Vacuum was removed at delivery of head. The shoulders and remainder of the 's body were then delivered without difficulty. Upon delivery, the was vigorous and placed on maternal chest and the mouth and nares were bulb suctioned. After a 2 min delay cord was doubly clamped and cut by FOB and the remained on maternal chest. An intact placenta with 3-vessel cord delivered via Noah and there was found to be minimal bleeding.~ Vigorous fundal massage was performed and the fundus was found to be firm. IV oxytocin was given. Examination of the vagina and perineum revealed a 2nd laceration repaired in the usual fashion with 3-0 vicryl rapide suture. Following the repair, sponge, instrument and needle counts were correct. Mom and baby were both in stable condition in the labor suite. Vitals - Labs Vital Signs - I&O Vital Signs Date Time Temp Pulse Resp B/P (MAP) Pulse Ox O2 Delivery O2 Flow Rate FiO2 12/21/22 14:38 83 18 120/81 (94) 100 Room Air 12/21/22 14:23 81 18 122/84 (97) 100 Room Air 12/21/22 14:09 69 18 116/72 (87) 99 Room Air 12/21/22 13:53 78 18 119/80 (93) 100 Room Air 12/21/22 13:51 37.4 12/21/22 13:38 86 18 112/64 (80) 100 Room Air 12/21/22 13:23 75 18 110/71 (84) 100 Room Air 12/21/22 13:10 82 18 114/65 (81) 100 Room Air 12/21/22 12:54 84 18 110/63 (79) 100 Room Air 12/21/22 12:38 87 18 119/64 (82) 95 Room Air 12/21/22 12:24 81 18 97/62 (74) 100 Room Air 12/21/22 12:10 78 18 101/70 (80) 99 Room Air 12/21/22 11:56 36.7 12/21/22 11:50 86 18 125/73 (90) 98 Room Air 12/21/22 11:40 78 18 120/81 (94) 100 Room Air 12/21/22 11:35 77 18 120/69 (86) 100 Room Air 12/21/22 11:30 81 18 121/77 (92) 100 Room Air 12/21/22 11:26 78 18 127/88 (101) 100 Room Air 12/21/22 11:21 83 18 130/78 (95) 98 Room Air 12/21/22 11:16 81 18 118/72 (87) 99 Room Air 12/21/22 11:12 82 18 118/70 (86) 99 Room Air 12/21/22 11:07 100 18 124/77 (93) 99 Room Air 12/21/22 11:01 84 18 127/75 (92) 99 Room Air 12/21/22 10:54 86 18 124/81 (95) 98 Room Air 12/21/22 10:51 66 18 118/74 (89) 98 Room Air 12/21/22 10:45 81 18 113/75 (88) 96 Room Air 12/21/22 10:42 76 18 119/77 (91) Room Air 12/21/22 10:38 81 18 120/78 (92) 97 Room Air 12/21/22 10:35 87 18 127/89 (102) 99 Room Air 12/21/22 10:32 93 18 125/79 (94) Room Air 12/21/22 10:29 83 18 133/69 (90) 99 Room Air 12/21/22 10:26 83 18 125/73 (90) Room Air 12/21/22 10:23 92 18 132/76 (94) 99 Room Air 12/21/22 10:20 91 18 127/80 (96) 100 Room Air 12/21/22 10:16 87 18 122/77 (92) Room Air 12/21/22 08:55 36.7 88 18 100 Room Air 12/21/22 08:55 36.7 90 18 134/92 (106) Room Air Labs Laboratory Tests 12/21/22 06:19: Urine Color YELLOW, Urine Clarity CLEAR, Urine pH 7.0, Urine Specific Bromide 1.015L, Urine Protein NEGATIVE, Urine Glucose (UA) NEGATIVE, Urine Ketones 4+H, Urine Nitrite NEGATIVE, Urine Bilirubin NEGATIVE, Urine Urobilinogen 1.0, Urine Leukocyte Esterase NEGATIVE, Urine RBC (Auto) 2+H, Urine RBC RARE, Urine WBC 2- 5, Urine Squamous Epithelial Cells 5-10, Urine Crystals NONE, Urine Bacteria FEWH, Urine Casts NONE, Urine Mucus NEGATIVE, Urine Culture Indicated YES 12/21/22 06:35: White Blood Count 10.6, Red Blood Count 4.26, Hemoglobin 11.4L, Hematocrit 35, Mean Corpuscular Volume 82, Mean Corpuscular Hemoglobin 27, Mean Corpuscular Hemoglobin Concent 33, Red Cell Distribution Width 15.1H, Platelet Count 239, Mean Platelet Volume 10.9, Immature Granulocyte % (Auto) 0, Neutrophils (%) (Auto) 70, Lymphocytes (%) (Auto) 18, Monocytes (%) (Auto) 8, Eosinophils (%) (Auto) 4, Basophils (%) (Auto) 0, Neutrophils # (Auto) 7.4, Lymphocytes # (Auto) 1.9, Monocytes # (Auto) 0.8, Eosinophils # (Auto) 0.4H, Basophils # (Auto) 0.0, Immature Granulocyte # (Auto) 0.0, Syphilis Total Antibody Negative LINDSAY LOZOYA MD Dec 21, 2022 17:43
[2022-12-21] MEDS ORDERED: Tetanus/Diphtheria/Pertussis (Acell) ADULT Vaccine 0.5 ML IM ONE (17:45)
[2022-12-21] MEDS ORDERED: WITCH HAZEL(TUCKS) 40 EA JAR TOP PRN (17:45)
[2022-12-21] MEDS ORDERED: BENZOCAINE/MENTHOL (DERMOPLAST) 56 ML CAN TP PRN (17:45)
[2022-12-21] MEDS ORDERED: MEASLES, MUMPS, RUBELLA VACCINE (MMR) SQ ONE (17:45)
[2022-12-21] MEDS ORDERED: LIDOCAINE 2% w/EPI 1:200,000 20 ML VIAL INJ PRN (18:15)
[2022-12-21] MEDS: IBUPROFEN 600 MG TABLET PO SCH (19:00)
[2022-12-21] MEDS: ACETAMINOPHEN 500 MG TABLET PO SCH (19:00)
[2022-12-21] MEDS ORDERED: CATHETER FLUSH 10 ML SYR IV SCH (22:00)
[2022-12-22 01:18] VITALS: BP 121/64
[2022-12-22] MEDS: ACETAMINOPHEN 500 MG TABLET PO SCH ×4 (01:20→19:33)
[2022-12-22] MEDS: IBUPROFEN 600 MG TABLET PO SCH ×4 (01:20→19:32)
[2022-12-22 04:10] VITALS: BP 119/71
[2022-12-22 06:06] LABS: BASOPHILS % (AUTO) 0 % (0-10); EOSINOPHILS # (AUTO) 0.3 10^3/uL (0.0-0.3); EOSINOPHILS % (AUTO) 2 % (0-10); HEMATOCRIT 30 % (35-52); HEMOGLOBIN 9.7 g/dL (11.5-16.0); LYMPHOCYTES % (AUTO) 15 % (12-44); MEAN CORPUSCULAR HEMOGLOBIN 27 pg (25-34); MEAN CORPUSCULAR HGB CONC 33 g/dL (32-36); MEAN CORPUSCULAR VOLUME 82 fL (80-99); MEAN PLATELET VOLUME 11.5 fL (9.0-12.2); MONOCYTES # (AUTO) 1.1 10^3/uL (0.0-1.0); MONOCYTES % (AUTO) 8 % (0-12); NEUTROPHILS % (AUTO) 75 % (42-75); PLATELET COUNT 194 10^3/uL (130-400); WHITE BLOOD COUNT 13.3 10^3/uL (4.3-11.0)
[2022-12-22] MEDS: DOCUSATE SODIUM 100 MG CAPSULE PO SCH ×2 (08:03→19:32)
[2022-12-22 08:05] VITALS: BP 121/84
[2022-12-22] MEDS ORDERED: CALCIUM CARBONATE 500 MG CHEW TABLET PO PRN (08:15)
[2022-12-22 13:50] VITALS: BP 127/84
--- NOTE | 2022-12-22 14:39 | Anesthesia-Regional Post-Op ---
Regional Patient Condition Mental Status: Alert, Oriented x3 Circulation: Same as Pre-Op Headache: Absent Sensation: Full Recovery Motor Block: Absent Post Op Complications Complications None Follow Up Care/Instructions Patient Instructions None needed. Anesthesia/Patient Condition Patient is doing well, no complaints, stable vital signs, no apparent adverse anesthesia problems. No complications reported per nursing. RATNA COLLADO CRNA Dec 22, 2022 14:39
[2022-12-22] MEDS ORDERED: IBUP-844 PO ×2 (16:27)
--- NOTE | 2022-12-22 16:29 | Short Stay Summary ---
Discharge Summary Hospital Course Final Diagnosis: s/p VAVD at 39wk Hospital Course Date of Admission: Dec 21, 2022 at 06:17 Admission Diagnosis : 1. 39w2d induction of labor (elective) Family Physician/Provider: Devorah Lozoya MD Date of Discharge: 12/22/22 Discharge Diagnosis: 1. 39w2d induction of labor (elective) s/p VAVD on12/21/22 2. second degree laceration repair Hospital Course: Routine course. Labs and Pending Lab Test: Laboratory Tests 12/22/22 05:37: White Blood Count 13.3H, Red Blood Count 3.63L, Hemoglobin 9.7L, Hematocrit 30L, Mean Corpuscular Volume 82, Mean Corpuscular Hemoglobin 27, Mean Corpuscular Hemoglobin Concent 33, Red Cell Distribution Width 15.1H, Platelet Count 194, Mean Platelet Volume 11.5, Immature Granulocyte % (Auto) 0, Neutrophils (%) (Auto) 75, Lymphocytes (%) (Auto) 15, Monocytes (%) (Auto) 8, Eosinophils (%) (Auto) 2, Basophils (%) (Auto) 0, Neutrophils # (Auto) 10.0H, Lymphocytes # (Auto) 2.0, Monocytes # (Auto) 1.1H, Eosinophils # (Auto) 0.3, Basophils # (Auto) 0.0, Immature Granulocyte # (Auto) 0.0 Microbiology 12/21/22 Urine Culture - Final, Complete Lactobacillus species Home Meds Active Ventolin Hfa (Albuterol Sulfate) 1 Puff Puff 2 Puff IH Q4H PRN 1 PUFF = 90 MCG Reported Tums (Calcium Carbonate) 200 Mg Calcium (500 Mg) Tab.chew 200 Mg PO Vitamin Tablet ( Vit No.124/Iron/FA) 27 Mg Iron-800 Mcg Tablet 1 Each PO Assessment/Pt Instructions Follow up with Dr. Lozoya in 6wk Discharge Instructions Discharge Diet: No Restrictions Discharge Physical Examination General Appearance: Alert, Oriented X3, Cooperative Psych/Mental Status: Mental Status NL, Mood NL Allergies: Coded Allergies: adhesive tape (Verified Allergy, Unknown, 12/21/22) codeine (Verified Allergy, Unknown, 06/21/15) latex (Verified Allergy, Unknown, 04/06/21) Discharge Summary Date of Admission Dec 21, 2022 at 06:17 Date of Discharge ROXANNA RUBIO DO Dec 22, 2022 16:29
[2022-12-22 19:30] VITALS: BP 128/76
[2022-12-23] MEDS: IBUPROFEN 600 MG TABLET PO SCH ×2 (01:54→09:23)
[2022-12-23] MEDS: ACETAMINOPHEN 500 MG TABLET PO SCH ×2 (01:55→09:22)
[2022-12-23 09:15] VITALS: BP 130/79
[2022-12-23] MEDS: DOCUSATE SODIUM 100 MG CAPSULE PO SCH (09:23)
[2022-12-23 13:10] VITALS: BP 130/79
[2022-12-23 13:45] VITALS: BP 109/64
== END 2022-12-23 13:10 | disposition home or self-care (01) | DRG 807 ==
LOC: LDRP 06:17
PROVIDERS: ADMIT Family Medicine; ATTEND Family Medicine
PROC: 10D07Z6 Extraction of Products of Conception, Vacuum, Via Natural or Artificial Opening (ICD-10-PCS; principal; 2022-12-21)
PROC: 10907ZC Drainage of Amniotic Fluid, Therapeutic from Products of Conception, Via Natural or Artificial Opening (ICD-10-PCS; 2022-12-21)
DX: O99.513 Diseases of the respiratory system complicating pregnancy, third trimester (principal); Z37.0 Single live birth; J45.909 Unspecified asthma, uncomplicated; Z3A.39 39 weeks gestation of pregnancy; O70.1 Second degree perineal laceration during delivery; O69.81X0 Labor and delivery complicated by cord around neck, without compression, not applicable or unspecified; Z79.899 Other long term (current) drug therapy; Z88.5 Allergy status to narcotic agent
CPT/HCPCS: 36415; 81000; 85025; 86780; 86850; 86900; 86901; 87077; 87088